=== PATIENT | female | born 1995 | race Caucasian/White ===

== ENCOUNTER 2021-09-11 18:50 | Emergency (ER) | payer MEDICAID ==
[~2021-09-11] VITALS: Ht 172.7 cm; Wt 63.6 kg
[2021-09-11] MEDS ORDERED: ONDA4TAB12 PO ×2 (20:43→20:44)
[2021-09-11] MEDS ORDERED: acetaminophen 325mg tablet PO ONE (20:45)
[2021-09-11 20:57] VITALS: BP 124/82
== END 2021-09-11 21:00 | disposition home or self-care (01) ==
LOC: ER 18:51
DX: S06.0X0A Concussion without loss of consciousness, initial encounter (principal); S00.83XA Contusion of other part of head, initial encounter; R11.0 Nausea; Z88.5 Allergy status to narcotic agent; Z79.899 Other long term (current) drug therapy; W21.05XA Struck by basketball, initial encounter; Y93.67 Activity, basketball; Y92.89 Other specified places as the place of occurrence of the external cause; Y99.8 Other external cause status
CPT/HCPCS: 70450; 70486; 72125; 99284